=== PATIENT | female | born 1970 | race Caucasian/White ===

== ENCOUNTER 2019-03-23 10:15 | Emergency (ER) | payer BC ==
[~2019-03-23] VITALS: Ht 162.6 cm; Wt 55.3 kg
[2019-03-23 10:35] LABS: URINE BILIRUBIN NEGATIVE (Negative); URINE BLOOD 2+ (Negative); URINE CLARITY CLEAR; URINE COLOR YELLOW; URINE GLUCOSE-RANDOM* NEGATIVE (Negative); URINE KETONES NEGATIVE (Negative); URINE LEUKOCYTES 1+ (Negative); URINE NITRITE NEGATIVE (Negative); URINE PROTEIN (DIPSTICK) TRACE (Negative); URINE SPECIFIC GRAVITY 1.015 (1.005-1.035); URINE UROBILINOGEN 0.2 E.U./dl (0.2-1.0)
[2019-03-23 10:39] LABS: CASTS None Seen /LPF (None Seen); SQUAMOUS 4-10 Moderate /LPF (0-3)
[2019-03-23 10:40] LABS: CRYSTALS None Seen /LPF (None Seen)
[2019-03-23 10:43] LABS: URINE RBC 3-10 Few /HPF (0-2)
[2019-03-23 10:46] LABS: ABSOLUTE NEUTROPHILS 6.2 thou/uL (1.4-8.2); BASOPHILS 0.4 % (0.0-2.0); EOSINOPHILS 0.3 % (0.0-3.0); HEMATOCRIT 37.4 % (37.0-47.0); HEMOGLOBIN 12.6 gm/dL (12.0-15.0); LYMPHOCYTES 24.3 % (24.0-44.0); MCH 30.9 pg (26.0-34.0); MCHC 33.7 g/dL (28.0-37.0); MCV 91.7 fL (80.0-100.0); MONOCYTES 8.5 % (1.0-8.0); PLATELET COUNT 282 thou/uL (150-400); POLYS 66.5 % (36.0-66.0); RBC 4.08 mil/uL (4.20-5.00); RDW 12.7 % (10.5-14.5); WBC 9.3 thou/uL (4.0-11.0)
[2019-03-23 10:54] LABS: CALCIUM 9.6 mg/dL (8.5-10.1); CREATININE 0.8 mg/dL (0.6-1.0); POTASSIUM 3.8 mmol/L (3.5-5.1)
[2019-03-23 11:00] LABS: ALBUMIN 3.9 g/dL (3.4-5.0); DIRECT BILIRUBIN 0.2 mg/dL (<0.1-0.3); TOTAL BILIRUBIN 0.9 mg/dL (<0.1-1.0); TOTAL PROTEIN 7.7 g/dL (6.4-8.2)
[2019-03-23] MEDS ORDERED: BENTYL 20 MG TA20 M1 PO (12:40)
[2019-03-23] MEDS ORDERED: PEPCID20 MG PO (12:40)
[2019-03-23] MEDS ORDERED: ONDANSETRON HCL4 M2 PO (12:40)
[2019-03-23 12:51] VITALS: BP 118/72
== END 2019-03-23 12:45 | disposition home or self-care (01) ==
LOC: ER 10:15
PROVIDERS: Physician Assistant
DX: K59.00 Constipation, unspecified (principal); R10.13 Epigastric pain; R11.2 Nausea with vomiting, unspecified